=== PATIENT | male | born 1945 | race Caucasian/White ===

== ENCOUNTER 2024-02-02 09:59 | Observation (INO) | payer OTHER, MEDICARE ==
--- NOTE | 2024-02-02 10:22 | ED ---
Skin/Abscess/FB HPI - General Chief complaint: Skin/Abscess/Foreign Body Stated complaint: L Leg Sweeling Time Seen by Provider: 02/02/24 10:15 Source: patient, RN notes reviewed Mode of arrival: wheelchair Limitations: no limitations - History of Present Illness Initial comments: 78-year-old male presents emergency department chief complaint of right lower extremity leg wounds and weeping over the past few weeks. Patient states that he was urged to report to the emergency department for further evaluation and possible IV antibiotics. He denies fevers, chills, nausea, vomiting, weakness. Denies recent antibiotics use. Patient has a history of CHF and chronic LE edema. Patient is from out of town and lives in [place], [place]. He states that he had a 'vein removed' of the RLE in the - Related Data Home Medications Medication Instructions Recorded Confirmed Furosemide [Lasix] 40 mg PO DAILY 02/02/24 02/02/24 HYDROcodone/APAP 5-325MG [[place] 1 tab PO BID PRN 02/02/24 02/02/24 5-325] Ipratropium/Albuter 20-100Mcg 1 puff INHALATION RT-QID PRN 02/02/24 02/02/24 [Combivent Respimat 20-100Mcg Inhaler] Previous Rx's Medication Instructions Recorded Cephalexin [Keflex] 500 mg PO Q8HR 7 Days #21 cap 02/04/24 Dapagliflozin Propanediol [Farxiga] 10 mg PO DAILY 90 Days #90 tab 02/04/24 Famotidine [Pepcid] 20 mg PO DAILY 90 Days #90 tab 02/04/24 Losartan [Cozaar] 12.5 mg PO DAILY 90 Days #90 tab 02/04/24 Spironolactone [Aldactone] 12.5 mg PO DAILY 90 Days #90 tab 02/04/24 Allergies Allergy/AdvReac Type Severity Reaction Status Date / Time ceftriaxone Allergy Anaphylaxis Verified 02/03/24 09:42 Review of Systems ROS Statement: Those systems with pertinent positive or pertinent negative responses have been documented in the HPI. ROS Other: All systems not noted in ROS Statement are negative. Past Medical History Past Medical History: Hypertension History of Any Multi-Drug Resistant Organisms: None Reported Past Surgical History: Cholecystectomy Past Psychological History: PTSD Smoking Status: Never smoker Past Alcohol Use History: Rare Past Drug Use History: None Reported General Exam - General Exam Comments Initial Comments: Visual Physical Exam Vital signs reviewed General: Well-appearing, nontoxic, no acute distress. Head: Normocephalic, atraumatic Eyes: PERRLA, EOMI ENT: Airway patent Chest: Nonlabored breathing Skin: No visual rash, normal skin tone Neuro: Alert and oriented 3 Musculoskeletal: No gross abnormalities Limitations: no limitations General appearance: alert, in no apparent distress Head exam: Present: atraumatic, normocephalic, normal inspection Eye exam: Present: normal appearance, PERRL, EOMI. Absent: scleral icterus, conjunctival injection, periorbital swelling ENT exam: Present: normal exam, mucous membranes moist Neck exam: Present: normal inspection. Absent: tenderness, meningismus, lymphadenopathy Respiratory exam: Present: normal lung sounds bilaterally. Absent: respiratory distress, wheezes, rales, rhonchi, stridor Cardiovascular Exam: Present: regular rate, normal rhythm, normal heart sounds. Absent: systolic murmur, diastolic murmur, rubs, gallop, clicks GI/Abdominal exam: Present: soft, normal bowel sounds. Absent: distended, tenderness, guarding, rebound, rigid Right Lower Leg exam: Present: tenderness (anterior, weeping and scabbing noted), swelling, erythema Ankle exam: Present: tenderness, swelling Foot/Toe exam: Present: swelling Neurovascular tendon exam: Present: no vascular compromise, pulse deficit (doppler US revealed pulse). Absent: abnormal cap refill Left Lower Leg exam: Present: swelling Ankle exam: Present: swelling Foot/Toe exam: Present: swelling Neurovascular tendon exam: Present: no vascular compromise Back exam: Present: normal inspection Neurological exam: Present: alert, oriented X3, CN II-XII intact Psychiatric exam: Present: normal affect, normal mood Course Vital Signs 02/02/24 02/02/24 02/02/24 10:02 13:00 13:30 Temperature 97.9 F Pulse Rate 55 L 53 L 56 L Pulse Rate [ Left] Respiratory 16 18 18 Rate Blood Pressure 134/77 140/65 135/63 Blood Pressure [Right Arm] O2 Sat by Pulse 97 100 97 Oximetry 02/02/24 02/02/24 02/02/24 14:00 17:06 17:15 Temperature Pulse Rate 57 L 94 78 Pulse Rate [ Left] Respiratory 18 20 Rate Blood Pressure 135/59 102/49 Blood Pressure [Right Arm] O2 Sat by Pulse 98 Oximetry 02/02/24 02/02/24 02/02/24 17:31 19:03 20:16 Temperature Pulse Rate 78 77 70 Pulse Rate [ Left] Respiratory 22 16 Rate Blood Pressure 110/78 113/65 Blood Pressure [Right Arm] O2 Sat by Pulse 96 94 L Oximetry 02/02/24 02/02/24 02/03/24 20:29 20:44 00:09 Temperature Pulse Rate 71 71 72 Pulse Rate [ Left] Respiratory 19 Rate Blood Pressure 118/57 Blood Pressure [Right Arm] O2 Sat by Pulse 95 Oximetry 02/03/24 02/03/24 02/03/24 00:20 00:54 01:08 Temperature 97.8 F Pulse Rate 65 66 68 Pulse Rate [ Left] Respiratory 18 16 Rate Blood Pressure 110/49 107/50 Blood Pressure [Right Arm] O2 Sat by Pulse 97 95 Oximetry 02/03/24 02/03/24 02/03/24 03:23 03:33 03:48 Temperature Pulse Rate 61 64 65 Pulse Rate [ Left] Respiratory 15 Rate Blood Pressure 99/51 Blood Pressure [Right Arm] O2 Sat by Pulse 95 Oximetry 02/03/24 02/03/24 05:30 07:00 Temperature 97.5 F L 97.5 F L Pulse Rate 63 Pulse Rate [ 64 Left] Respiratory 17 16 Rate Blood Pressure 110/54 Blood Pressure 120/64 [Right Arm] O2 Sat by Pulse 97 98 Oximetry Medical Decision Making - Medical Decision Making Was pt. sent in by a medical professional or institution? @ -No Did you speak to anyone other than the patient for history? @ -[EMS, parent, family, police, friend?] Did you review nursing and triage notes? @ -Yes, and I agree, it is accurate with regards to the patient's symptoms. Were old charts reviewed? @ -No Differential Diagnosis? @ -[chest pain, altered mental status abdominal pain women, abdominal pain men, vaginal bleeding, weakness, fever, dyspnea, syncope, headache, dizziness, GI bleed, back pain, seizure] Cellulitis, congestive heart failure, lower extremity edema, deep vein thrombosis, this list is not all inclusive. EKG interpreted by me (3pts min.)? @ -[none] EKG interpreted by me demonstrating the following: X-rays interpreted by me (1pt min.)? @ -CXR interstitial edema consistent with congestive heart failure ex acerabtion. CT interpreted by me (1pt min.)? @ -[none] U/S interpreted by me (1pt. min.)? @ -US of the right lower extremity no evidence for DVT What testing was considered but not performed? (CT, X-rays, U/S, labs)? Why? @ [CT, X-rays, U/S, labs? Why?] What meds were considered but not given? Why? @ -[none] Did you discuss the management of the patient with other professionals? @ -I spoke with Dr. Longoria, who is the on-call internal medicine provider in regard to The patient's elevated BNP level and concern for cellulitis. Patient be admitted for IV antibiotics and continued diuresis for CHF exacerabtion and cellulits. Did you reconcile home meds? @ -No Was smoking cessation discussed for >3mins.? @ -No Was critical care preformed (if so, how long)? @ -No Were there social determinants of health that impacted care today? How? (Homelessness, low income, unemployed, alcoholism, drug addiction, transportation, low edu. Level, literacy, decrease access to med. care, [facility], rehab)? @ -No Was there de-escalation of care discussed even if they declined? (Discuss DNR or withdrawal of care, Hospice)? @ -No What co-morbidities impacted this encounter? (DM, HTN, Smoking, COPD, CAD, Cancer, CVA, Hep., AIDS, mental health diagnosis, sleep apnea, morbid obesity)? @ -[DM, HTN, Smoking, COPD, CAD, Cancer, CVA, Hep., AIDS, mental health diagnosis, sleep apnea, morbid obesity?] HTN and CHF Was patient admitted / discharged? @ -admitted. 78-year-old male with lower extremity edema and erythema. On examination patient is noted to have Bilateral lower extremity edema that is wo rse on the right side. Right lower extremity reveals erythema and scant pain and performed it is consistent with cellulitis. Patient will be evaluated via laboratory studies and ultrasound to rule out potential blood clot. labs concerning for an elevated BNP of 9950 and cxr concerning for fluid overload. patient will be admitted for IV antiboitics and continued diuresis via lasix. started on 40 IVP lasix Q12H and dose of IV rocephin and ordered oral course of keflex. case discussed with Dr. Heck Undiagnosed new problem with uncertain prognosis? @ -None Drug Therapy requiring intensive monitoring for toxicity (Heparin, Nitro, Insulin, Cardizem)? @ -None Were any procedures done? @ -None Diagnosis/symptom? @ -CHF exacerbation, cellulitis Acute, or Chronic, or Acute on Chronic? @ -acute, acute on chronic Uncomplicated (without systemic symptoms) or Complicated (systemic symptoms)? @ -complicated Side effects of treatment? @ -[none] Exacerbation, Progression, or Severe Exacerbation] @ -Not applicable Poses a threat to life or bodily function? @ -[no] - Lab Data Result diagrams: 02/03/24 06:28 02/03/24 06:28 Lab Results 02/02/24 02/02/24 02/02/24 Range/Units 12:22 12:22 12:22 WBC 5.8 (3.8-10.6) k/uL RBC 3.40 L (4.30-5.90) m/uL Hgb 11.2 L (13.0-17.5) gm/dL Hct 35.0 L (39.0-53.0) % MCV 103.2 H (80.0-100.0) fL MCH 33.0 (25.0-35.0) pg MCHC 32.0 (31.0-37.0) g/dL RDW 15.1 (11.5-15.5) % Plt Count 138 L (150-450) k/uL MPV 8.8 Neutrophils % 74 % Lymphocytes % 9 % Monocytes % 8 % Eosinophils % 7 % Basophils % 0 % Neutrophils # 4.3 (1.3-7.7) k/uL Lymphocytes # 0.5 L (1.0-4.8) k/uL Monocytes # 0.4 (0-1.0) k/uL Eosinophils # 0.4 (0-0.7) k/uL Basophils # 0.0 (0-0.2) k/uL Macrocytosis Moderate PT (10.0-12.5) sec INR (<1.2) APTT (22.0-30.0) sec Sodium 135 L (137-145) mmol/L Potassium 4.6 (3.5-5.1) mmol/L Chloride 101 (98-107) mmol/L Carbon Dioxide 28 (22-30) mmol/L Anion Gap 6 mmol/L BUN 15 (9-20) mg/dL Creatinine 0.71 (0.66-1.25) mg/dL Est GFR (CKD-EPI)AfAm >90 (>60 ml/min/1.73 sqM) Est GFR (CKD-EPI)NonAf 89 (>60 ml/min/1.73 sqM) Glucose 102 H (74-99) mg/dL Lactic Ac Sepsis Rflx Plasma Lactic Acid Mike 2.3 H* (0.7-2.0) mmol/L Calcium 8.8 (8.4-10.2) mg/dL Magnesium (1.6-2.3) mg/dL Total Bilirubin 2.2 H (0.2-1.3) mg/dL AST 43 (17-59) U/L ALT 11 (4-49) U/L Alkaline Phosphatase 81 (38-126) U/L NT-Pro-B Natriuret Pep pg/mL Total Protein 6.6 (6.3-8.2) g/dL Albumin 3.5 (3.5-5.0) g/dL 02/02/24 02/02/24 02/02/24 Range/Units 13:01 13:01 13:09 WBC (3.8-10.6) k/uL RBC (4.30-5.90) m/uL Hgb (13.0-17.5) gm/dL Hct (39.0-53.0) % MCV (80.0-100.0) fL MCH (25.0-35.0) pg MCHC (31.0-37.0) g/dL RDW (11.5-15.5) % Plt Count (150-450) k/uL MPV Neutrophils % % Lymphocytes % % Monocytes % % Eosinophils % % Basophils % % Neutrophils # (1.3-7.7) k/uL Lymphocytes # (1.0-4.8) k/uL Monocytes # (0-1.0) k/uL Eosinophils # (0-0.7) k/uL Basophils # (0-0.2) k/uL Macrocytosis PT 12.3 (10.0-12.5) sec INR 1.2 H (<1.2) APTT 27.6 (22.0-30.0) sec Sodium (137-145) mmol/L Potassium (3.5-5.1) mmol/L Chloride (98-107) mmol/L Carbon Dioxide (22-30) mmol/L Anion Gap mmol/L BUN (9-20) mg/dL Creatinine (0.66-1.25) mg/dL Est GFR (CKD-EPI)AfAm (>60 ml/min/1.73 sqM) Est GFR (CKD-EPI)NonAf (>60 ml/min/1.73 sqM) Glucose (74-99) mg/dL Lactic Ac Sepsis Rflx Y Plasma Lactic Acid Mike (0.7-2.0) mmol/L Calcium (8.4-10.2) mg/dL Magnesium 1.5 L (1.6-2.3) mg/dL Total Bilirubin (0.2-1.3) mg/dL AST (17-59) U/L ALT (4-49) U/L Alkaline Phosphatase (38-126) U/L NT-Pro-B Natriuret Pep 9950 pg/mL Total Protein (6.3-8.2) g/dL Albumin (3.5-5.0) g/dL Disposition Clinical Impression: Cellulitis, Congestive heart failure, Peripheral edema Disposition: ADMITTED IP TO THIS [facility] Condition: Poor Decision to Admit Reason: Admit from EC Decision Date: 02/02/24 Decision Time: 15:37
[2024-02-02 12:40] LABS: Basophils % (A) 0 %; Eosinophils # (A) 0.4 k/uL (0-0.7); Eosinophils % (A) 7 %; HGB 11.2 gm/dL (13.0-17.5); Lymphocytes # (A) 0.5 k/uL (1.0-4.8); Lymphocytes % (A) 9 %; MCV 103.2 fL (80.0-100.0); Macrocytosis Moderate; Mean Platelet Volume 8.8; Monocytes # (A) 0.4 k/uL (0-1.0); Monocytes % (A) 8 %; Neutrophils # (A) 4.3 k/uL (1.3-7.7); Neutrophils % (A) 74 %; Platelet Count 138 k/uL (150-450); RDW 15.1 % (11.5-15.5); WBC 5.8 k/uL (3.8-10.6)
[2024-02-02 12:56] LABS: ALT 11 U/L (4-49); African American GFR (CKD) >90 (>60 ml/min/1.73 sqM); Anion Gap 6 mmol/L; Blood Urea Nitrogen 15 mg/dL (9-20); Calcium 8.8 mg/dL (8.4-10.2); Carbon Dioxide 28 mmol/L (22-30); Chloride 101 mmol/L (98-107); Glucose 102 mg/dL (74-99); Non-African American GFR(CKD) 89 (>60 ml/min/1.73 sqM); Sodium 135 mmol/L (137-145)
[2024-02-02 13:21] LABS: INR 1.2 (<1.2); Partial Thromboplastin Time 27.6 sec (22.0-30.0); Prothrombin Time 12.3 sec (10.0-12.5)
[2024-02-02] MEDS: SODIUM CHLORIDE 0.9% 1,000 ML IV STA (13:38)
[2024-02-02 13:52] LABS: Albumin 3.5 g/dL (3.5-5.0); Potassium 4.6 mmol/L (3.5-5.1); Total Protein 6.6 g/dL (6.3-8.2)
[2024-02-02 13:53] LABS: AST 43 U/L (17-59); Alkaline Phosphatase 81 U/L (38-126); Total Bilirubin 2.2 mg/dL (0.2-1.3)
--- NOTE | 2024-02-02 14:05 | US ---
EXAMINATION TYPE: US venous doppler duplex LE RT DATE OF EXAM: 02/02/2024 1:39 PM COMPARISON: NONE CLINICAL INDICATION: Male, 78 years old with history of edema, erythema, weeping; Edema, erythema, we eping. Hx of blood clot in right leg per patient. SIDE PERFORMED: Right TECHNIQUE: The lower extremity deep venous system is examined utilizing real time linear array sonog chapo with graded compression, doppler sonography and color-flow sonography. VESSELS IMAGED: Common Femoral Vein Deep Femoral Vein Greater Saphenous Vein * Femoral Vein Popliteal Vein Small Saphenous Vein * Proximal Calf Veins (* superficial vessels) Right Leg: No evidence of DVT. Limited visibility of prox calf veins. Mild subcutaneous edema at the calf. *A small to moderate-sized Layton's cyst noted measuring 6.8 x 3.4 x 1.5 cm. Incidental finding: Borderline enlarged lymph node in the left groin: 2.5 x 1.5 x 1.1 cm. IMPRESSION: 1. No evidence for DVT within the right lower extremity imaged from the groin to the upper calf with some limitation in visualization of the upper calf veins. 2. Incidental small to moderate-sized Layton's cyst measuring 6.8 x 3.4 cm. 3. Incidental borderline enlarged left inguinal lymph node measuring 2.5 x 1.5 x 1.1 cm. Probably ghislaine ctive/post inflammatory. This can be followed clinically. If any suspicious clinical features develop or if progressive enlargement, tissue sampling can be considered.
[2024-02-02 14:38] LABS: Magnesium 1.5 mg/dL (1.6-2.3)
--- NOTE | 2024-02-02 15:20 | XR ---
EXAMINATION TYPE: XR chest 2V DATE OF EXAM: 02/02/2024 COMPARISON: None INDICATION: CHF TECHNIQUE: Frontal and lateral views of the chest are obtained. FINDINGS: The heart size is enlarged. The pulmonary vasculature is normal. Bibasilar infiltrates are present. Small right pleural effusion is present.. IMPRESSION: 1. Clinical correlation recommended for congestive heart failure. Follow-up is recommended.
[2024-02-02] MEDS ORDERED: NALOXONE 0.4 MG/ML 1 ML VIAL IV PRN (15:37)
[2024-02-02] MEDS: IPRATROPIUM-ALBUTEROL 3 ML NEB INHALATION STA (17:06)
[2024-02-02] MEDS ORDERED: EPINEPHrine - Anaphylaxis Kit (1 mg/mL) IM PRN (17:19)
[2024-02-02] MEDS: methylPREDNISolone SOD SUCCI 125 MG/2 ML VIAL IM ONE (17:20)
[2024-02-02] MEDS: diphenhydrAMINE 50 MG/ML 1 ML VIAL IVP STA (17:26)
[2024-02-02] MEDS: MAGNESIUM SULFATE-D5W PMX 1 GM in DEXTROSE/WATER 1 100ML.BAG IVPB SCH (18:53)
[2024-02-02] MEDS: FUROSEMIDE 10 MG/ML 4 ML VIAL IV STA (18:53)
[2024-02-02] MEDS: IPRATROPIUM-ALBUTEROL 3 ML NEB INHALATION SCH (20:16)
[2024-02-02] MEDS: BUDESONIDE 0.5 MG/2 ML NEBU INHALATION SCH (20:16)
[2024-02-02] MEDS: HYDROmorphone 1 MG/ML 1 ML SYRINGE IVP PRN (20:33)
[2024-02-02] MEDS: FUROSEMIDE 10 MG/ML 4 ML VIAL IV SCH (23:09)
--- NOTE | 2024-02-02 23:22 | CT ---
EXAMINATION TYPE: CT angio chest DATE OF EXAM: 02/02/2024 COMPARISON: NONE HISTORY: high d-dimer CT DLP: 503.5 mGycm. Automated Exposure Control for Dose Reduction was Utilized. CONTRAST: CTA scan of the thorax is performed with IV Contrast, patient injected with 100 ml mL of Isovue 370, pulmonary embolism protocol. MIP Images are created on CT scanner and reviewed. FINDINGS: LUNGS: There are small bilateral pleural effusions with associated compressive atelectasis in the low er lungs. No pneumothorax seen bilaterally. MEDIASTINUM: Slightly suboptimal study without CT evidence for acute pulmonary embolism. Cardiomegaly is present. No pericardial effusion is seen. Coronary artery calcification is noted. OTHER: Mild to moderate diffuse subcutaneous edema is seen. Some ascites in the abdomen is noted. Cho lecystectomy clips are seen. Multilevel spurring in the thoracic spine IMPRESSION: 1. No CT evidence for acute pulmonary embolism. 2. Cardiomegaly with small to tiny pleural effusions and mild to moderate diffuse subcutaneous edema consistent with CHF exacerbation/fluid overload state is noted.
[2024-02-02] MEDS: methylPREDNISolone SOD SUCCI 40 MG/ML 1 ML VIAL IV SCH (23:27)
--- NOTE | 2024-02-02 23:52 | US ---
EXAMINATION TYPE: US venous doppler duplex LE LT DATE OF EXAM: 02/02/2024 11:44 PM COMPARISON: NONE CLINICAL INDICATION: Male, 78 years old with history of dvt; HX dvt in right leg. SIDE PERFORMED: Left TECHNIQUE: The lower extremity deep venous system is examined utilizing real time linear array sonog chapo with graded compression, doppler sonography and color-flow sonography. VESSELS IMAGED: Common Femoral Vein Deep Femoral Vein Greater Saphenous Vein * Femoral Vein Popliteal Vein Small Saphenous Vein * Proximal Calf Veins (* superficial vessels) limited due to body habitus and slight swelling Left Leg: Negative for DVT as best seen today. There is a 2.1 x 1.0 x 1.2cm prominent but benign-ruth earing lymph node seen in the left groin with a 3mm cortex. Grayscale, color doppler, spectral doppler imaging performed of the deep veins of the left lower extr emity. There is normal flow, compressibility, vascular waveforms. IMPRESSION: Suboptimal study without convincing evidence for acute DVT in the left lower extremity. Subcutaneous edema distally is noted.
[2024-02-03] MEDS: diphenhydrAMINE 50 MG CAP PO SCH (05:38)
--- NOTE | 2024-02-03 05:40 | P.CNPUL ---
History of Present Illness Consult date: 02/03/24 Requesting physician: Venancio Longoria Reason for consult: other (Allergic reaction) Chief complaint: Acute shortness of breath, rash, itching History of present illness: Patient is a 78-year-old white male with past medical history significant for prostate cancer with previous radiation treatments, former tobacco smoker, heart failure. He is from the [facility] and is visiting in [facility]. Over the last month, he has noticed increased lower extremity swelling, he is developed redness and weeping wounds of his right lower extremity. Leg is tender with manipulation. Denies fevers/chills. Denies history of DVTs. He does take Lasix 40 mg daily and Aldactone on an outpatient basis. Denies missing any doses. Venous Doppler of the bilateral lower extremities did not show any evidence of D VT. There is a small to moderate-sized Layton's cyst noted. And borderline enlarged lymphadenopathy in the groin. Patient states that he has multiple medication allergies, but is unable to recall any of them. While emergency department, he was given a dose of Rocephin. Approximately 2 to 3 minutes after starting the infusion. Patient developed altered mental status, pruritic/erythemic rash over the extremity with the infusion, and was noted to be in respiratory distress. Unclear if he was actually given a dose of IM epinephrine. Did receive Benadryl. On my evaluation, he is sitting up in bed on room air, no acute distress. SpO2 95%. He is very talkative. No sign of airway compromise. No stridor or wheezing. No rash. Hemodynamics appear stable. No tachycardia or hypotension or sign of hemodynamic collapse. Patient did have an elevated D-dimer. Chest CTA was done in the emergency department, did not show any evidence of pulmonary embolism. There was cardiomegaly with small to tiny bilateral pleural effusions and mild to moderate diffuse subcutaneous edema consistent with CHF exacerbation and fluid overload state. NT proBNP was elevated at 9950. CBC: WBC count 5.8, hemoglobin 11.2, hematocrit 35, platelets 138. CMP: Sodium 135, potassium 4.6, chloride 101, serum bicarb 28, BUN 15, creatinine 0.71, glucose 102. Lactic acid 2.3 then down to 1.2. LFTs nonelevated. Total bilirubin 2.2. Hemodynamics are stable. Review of Systems REVIEW OF SYSTEMS: CONSTITUTIONAL: Reports weight gain, unable to quantify EYES: Denies change in vision. EARS, NOSE, MOUTH, THROAT: Denies headaches, denies sore throat. CARDIOVASCULAR: Denies chest pain, palpitations or syncopal episodes. Does endorse increased lower extremity swelling RESPIRATORY: Denies shortness of breath, cough, congestion or hemoptysis. GASTROINTESTINAL: Denies change in appetite, abdominal pain, nausea and vomiting, or diarrhea GENITOURINARY: Denies hematuria, denies infections. MUSKULOSKELETAL: Denies pain, denies swelling. INTEGUMENTARY: Denies rash, denies eczema. NEUROLOGICAL: Denies recent memory loss, no recent seizure activity. PSYCHIATRIC: Denies anxiety, denies depression. HEMATOLOGIC/LYMPHATIC: Denies anemia, denies enlarged lymph node Past Medical History Past Medical History: Hypertension History of Any Multi-Drug Resistant Organisms: None Reported Past Surgical History: Cholecystectomy Past Psychological History: PTSD Smoking Status: Never smoker Past Alcohol Use History: Rare Past Drug Use History: None Reported Medications and Allergies Home Medications Medication Instructions Recorded Confirmed Type Furosemide [Lasix] 40 mg PO DAILY 02/02/24 02/02/24 History HYDROcodone/APAP 5-325MG [[place] 1 tab PO BID PRN 02/02/24 02/02/24 History 5-325] Ipratropium/Albuter 20-100Mcg 1 puff INHALATION RT-QID PRN 02/02/24 02/02/24 History [Combivent Respimat 20-100Mcg Inhaler] Spironolactone 50 mg PO DAILY 02/02/24 02/02/24 History Allergies Allergy/AdvReac Type Severity Reaction Status Date / Time ceftriaxone Allergy Anaphylaxis Verified 02/02/24 18:35 Physical Exam Vitals: Vital Signs Temp Pulse Resp BP Pulse Ox 02/03/24 03:48 65 15 99/51 95 02/03/24 03:33 64 02/03/24 03:23 61 02/03/24 01:08 97.8 F 68 16 107/50 95 02/03/24 00:54 66 18 110/49 97 02/03/24 00:20 65 02/03/24 00:09 72 02/02/24 20:44 71 19 118/57 95 02/02/24 20:29 71 02/02/24 20:16 70 02/02/24 19:03 77 16 113/65 94 L 02/02/24 17:31 78 22 110/78 96 02/02/24 17:15 78 02/02/24 17:06 94 20 102/49 98 02/02/24 14:00 57 L 18 135/59 02/02/24 13:30 56 L 18 135/63 97 02/02/24 13:00 53 L 18 140/65 100 02/02/24 10:02 97.9 F 55 L 16 134/77 97 Intake and Output 02/02/24 02/02/24 02/03/24 14:59 22:59 06:59 Other: Weight 63.503 kg GENERAL EXAM: Alert, 78-year-old white male, disheveled, lying flat in bed, Comfortable in no apparent distress. Currently eating a bag of chips HEAD: Normocephalic and atraumatic EYES: Normal reaction of pupils, equal size. NOSE: Clear with pink turbinates. THROAT: No erythema or exudates. NECK: No masses, no JVD. No stridor. CHEST: No chest wall deformity. LUNGS: Equal air entry with bibasilar inspiratory crackles. No stridor, wheezing, rhonchi, focal dullness. On room air. No conversational dyspnea or accessory muscle use while at rest CVS: S1 and S2 normal with no audible murmur, regular rhythm. No extra heart sounds ABDOMEN: No hepatosplenomegaly, active bowel sounds, no guarding or rigidity. SPINE: No scoliosis or deformity SKIN: No rashes. Right lower extremity erythema and weeping edema CENTRAL NERVOUS SYSTEM: No focal deficits, tone is normal in all 4 extremities. EXTREMITIES: There is bilateral lower extremity edema, greater on the right. No clubbing, or cyanosis. Peripheral pulses are intact. Results - Laboratory Findings CBC and BMP: 02/02/24 12:22 02/02/24 12:22 PT/INR, D-dimer PT 12.3 sec (10.0-12.5) 02/02/24 13:01 INR 1.2 (<1.2) H 02/02/24 13:01 D-Dimer 2.31 mg/L FEU (<0.60) H 02/02/24 16:59 Abnormal lab findings: Abnormal Labs 02/02/24 02/02/24 02/02/24 12:22 12:22 12:22 RBC 3.40 L Hgb 11.2 L Hct 35.0 L MCV 103.2 H Plt Count 138 L Lymphocytes # 0.5 L INR D-Dimer Sodium 135 L Glucose 102 H Plasma Lactic Acid Mike 2.3 H* Magnesium Total Bilirubin 2.2 H 02/02/24 02/02/24 02/02/24 13:01 13:01 16:59 RBC Hgb Hct MCV Plt Count Lymphocytes # INR 1.2 H D-Dimer 2.31 H Sodium Glucose Plasma Lactic Acid Mike Magnesium 1.5 L Total Bilirubin - Diagnostic Findings Chest x-ray: image reviewed CT scan - chest: image reviewed Assessment and Plan Assessment: Observed allergic reaction/anaphylaxis, reportedly immediately after starting Rocephin infusion. Unclear if he was actually given a dose of IM epinephrine. He did receive a dose of Benadryl. No signs of airway or hemodynamic compromise. Suspect exacerbation of congestive heart failure, unknown type Acute dyspnea, secondary to above Elevated D-dimer, CT angiogram did not demonstrate any acute pulmonary emboli. Follow-up venous Doppler was not able to identify any DVTs bilaterally Right lower extremity cellulitis Plan: Patient's medications, labs, imaging reviewed Continue to monitor for signs of anaphylaxis Currently no signs of hemodynamic compromise or airway compromise. On room air. No stridor/wheezing/hypoxemia. Blood pressure is stable. No tachycardia. Continue with Benadryl, steroids, Pepcid for the next 24 hours. As needed IM epinephrine if needed. As far as, the patient's fluid overload state/suspected CHF exacerbation. Currently receiving Lasix 40 mg twice daily. Echocardiogram pending for the morning. Infectious disease specialist consulted for antibiotic management. No need for admission to the intensive care unit. Will continue to follow I have personally seen and examined the patient, performed the documentation and the assessment and plan as written. Number of minutes spent on the visit:20 Time with Patient: Greater than 30
[2024-02-03] MEDS ORDERED: CEPHALEXIN 500 MG CAP PO SCH (08:00)
[2024-02-03] MEDS ORDERED: ALBUTEROL NEBULIZED 2.5 MG/3 ML INHALATION PRN (08:20)
[2024-02-03] MEDS: FAMOTIDINE 20 MG TAB PO SCH (09:34)
[2024-02-03 10:52] LABS: Basophils # (A) 0.01 X 10*3/uL (0.00-0.10); Basophils % (A) 0.1 %; Eosinophils # (A) 0 X 10*3/uL (0.04-0.35); Eosinophils % (A) 0 %; HCT 31.6 % (39.6-50.0); HGB 10.5 g/dL (13.0-17.0); Lymphocytes # (A) 0.21 X 10*3/uL (0.90-5.00); Lymphocytes % (A) 2.7 %; MCH 32.6 pg (27.0-32.0); MCHC 33.2 g/dL (32.0-37.0); MCV 98.1 FL (80.0-97.0); Mean Platelet Volume 11.1 FL (9.5-12.2); Monocytes # (A) 0.26 X 10*3/uL (0.20-1.00); Monocytes % (A) 3.4 %; NRBC Per 100 WBC 0 X 10*3/uL (0.00-0.01); Neutrophils # (A) 7.17 X 10*3/uL (1.80-7.70); Neutrophils % (A) 93.2 %; Platelet Count 135 X 10*3/uL (140-440); RBC 3.22 X 10*6/uL (4.40-5.60); RDW 15.9 % (11.5-14.5)
[2024-02-03 11:02] LABS: ALT 10 U/L (10-49); AST 21 U/L (14-35); Albumin 3.1 g/dL (3.8-4.9); Albumin/Globulin Ratio 1.41 Ratio (1.60-3.17); Alkaline Phosphatase 82 U/L (41-126); BUN/Creat Ratio 16.11 Ratio (12.00-20.00); Blood Urea Nitrogen 14.5 mg/dL (9.0-27.0); Calcium 8.1 mg/dL (8.7-10.3); Carbon Dioxide 24.1 mmol/L (21.6-31.8); Chloride 97 mmol/L (96-109); Globulin 2.2 g/dL (1.6-3.3); Glucose 200 mg/dL (70-110); Magnesium 1.6 mg/dL (1.5-2.4); Phosphorus 3.4 mg/dL (2.4-5.1); Potassium 4.2 mmol/L (3.5-5.5); Sodium 134 mmol/L (135-145); Total Bilirubin 0.8 mg/dL (0.3-1.2); Total Protein 5.3 g/dL (6.2-8.2)
--- NOTE | 2024-02-03 11:51 | P.CRDCN ---
History of Present Illness History of present illness: HISTORY OF PRESENT ILLNESS: This is a 78-year-old male with a past medical history significant for congestive heart failure, prostate cancer, former nicotine dependence, and pneumonia earlier this year requiring prolonged hospitalization with mechanical ventilation. 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 We have been asked to see the patient in consultation for congestive heart failure. Patient examined at the bedside. Patient states over the past couple weeks his lower extremities have been getting more swollen. He also reports superficial wounds to his right lower extremity with weeping. He states that his right leg feels numb in certain places but states this has been chronic since having vein stripping of his right leg many years ago. The patient currently denies any chest pain or pressure. He denies any shortness of breath. Patient was started on IV Lasix 40 mg every 12 hours. Vital signs are stable. DIAGNOSTICS: - EKG reveals sinus mechanism with no signs of acute ischemia - Chest xray small right pleural effusion. Bibasilar infiltrates. Heart is enl arged. - Chest CTA: negative for PE. Cardiomegaly with small to tiny pleural effusions and mild to moderate diffuse subcutaneous edema. - Laboratory data: WBC 7.7. Hemoglobin 10.5. Platelet count 135. D-dimer 2.31. Sodium 134. Potassium 4.2. Magnesium 1.6. proBNP 9950. - Current home cardiac medications include Lasix 40 mg daily and spironolactone 50 mg daily REVIEW OF SYSTEMS: At the time of my exam: CONSTITUTIONAL: Denies fever or chills. HEENT: Denies blurred vision, vision changes, or eye pain. Denies hemoptysis CARDIOVASCULAR: Denies chest pain. Denies orthopnea. Denies PND. Denies palpitations RESPIRATORY: Denies shortness of breath. GASTROINTESTINAL: Denies abdominal pain. Denies nausea or vomiting. HEMATOLOGIC: Denies bleeding disorders. GENITOURINARY: Denies any blood in urine. SKIN: Reports lower extremity swelling. Reports wounds to lower extremities. PHYSICAL EXAM: VITAL SIGNS: Reviewed. GENERAL: Well-developed in no acute distress. HEENT: Head is normocephalic. Pupils are equal, round. Sclerae anicteric. Mucous membranes of the mouth are moist. Neck supple. No JVD or thyromegaly LUNGS: Respirations even and unlabored. Lungs essentially clear to auscultation bilaterally. HEART: Regular rate and rhythm. S1 and S2 heard. ABDOMEN: Soft. Nondistended. Nontender. EXTREMITIES: Normal range of motion. No clubbing or cyanosis. Peripheral pulses intact. Bilateral lower extremity noted. RLE with erythema and superficial wounds noted. NEUROLOGIC: Awake and alert. Oriented x 3. ASSESSMENT: Acute on chronic heart failure, type unknown, echo pending Right lower extremity cellulitis History of right lower extremity vein stripping, per patient History of right lower extremity DVT in , per patient History of pneumonia requiring mechanical ventilation and prolonged hospitalization, August 2023 PLAN: Obtain 2D echo to assess cardiac structure and function Continue IV Lasix 40 mg every [address] Fields consulted for cellulitis. Antibiotic management per ID. Obtain records from [facility] Further recommendations pending patient course. Nurse practitioner note has been reviewed by physician. Signing provider agrees with the documented findings, assessment, and plan of care documented by ASSISTANT NEWS DIRECTOR as a scribe. Past Medical History Past Medical History: Hypertension History of Any Multi-Drug Resistant Organisms: None Reported Past Surgical History: Cholecystectomy Past Psychological History: PTSD Smoking Status: Never smoker Past Alcohol Use History: Rare Past Drug Use History: None Reported Medications and Allergies Home Medications Medication Instructions Recorded Confirmed Type Furosemide [Lasix] 40 mg PO DAILY 02/02/24 02/02/24 History HYDROcodone/APAP 5-325MG [[place] 1 tab PO BID PRN 02/02/24 02/02/24 History 5-325] Ipratropium/Albuter 20-100Mcg 1 puff INHALATION RT-QID PRN 02/02/24 02/02/24 History [Combivent Respimat 20-100Mcg Inhaler] Spironolactone 50 mg PO DAILY 02/02/24 02/02/24 History Allergies Allergy/AdvReac Type Severity Reaction Status Date / Time ceftriaxone Allergy Anaphylaxis Verified 02/03/24 09:42 Physical Exam Vitals: Vital Signs Temp Pulse Pulse Resp BP BP Pulse Ox 02/03/24 07:00 97.5 F L 64 16 120/64 98 02/03/24 05:30 97.5 F L 63 17 110/54 97 02/03/24 03:48 65 15 99/51 95 02/03/24 03:33 64 02/03/24 03:23 61 02/03/24 01:08 97.8 F 68 16 107/50 95 07/17/24 00:54 66 18 110/49 97 02/03/24 00:20 65 02/03/24 00:09 72 02/02/24 20:44 71 19 118/57 95 02/02/24 20:29 71 02/02/24 20:16 70 02/02/24 19:03 77 16 113/65 94 L 02/02/24 17:31 78 22 110/78 96 02/02/24 17:15 78 02/02/24 17:06 94 20 102/49 98 02/02/24 14:00 57 L 18 135/59 02/02/24 13:30 56 L 18 135/63 97 02/02/24 13:00 53 L 18 140/65 100 02/02/24 10:02 97.9 F 55 L 16 134/77 97 Results 02/03/24 06:28 02/03/24 06:28 Cardiac Enzymes 02/02/24 Range/Units 12:22 AST 43 (17-59) U/L Coagulation 02/02/24 Range/Units 13:01 PT 12.3 (10.0-12.5) sec APTT 27.6 (22.0-30.0) sec CBC 02/02/24 Range/Units 12:22 WBC 5.8 (3.8-10.6) k/uL RBC 3.40 L (4.30-5.90) m/uL Hgb 11.2 L (13.0-17.5) gm/dL Hct 35.0 L (39.0-53.0) % Plt Count 138 L (150-450) k/uL Comprehensive Metabolic Panel 02/02/24 Range/Units 12:22 Sodium 135 L (137-145) mmol/L Potassium 4.6 (3.5-5.1) mmol/L Chloride 101 (98-107) mmol/L Carbon Dioxide 28 (22-30) mmol/L BUN 15 (9-20) mg/dL Creatinine 0.71 (0.66-1.25) mg/dL Glucose 102 H (74-99) mg/dL Calcium 8.8 (8.4-10.2) mg/dL AST 43 (17-59) U/L ALT 11 (4-49) U/L Alkaline Phosphatase 81 (38-126) U/L Total Protein 6.6 (6.3-8.2) g/dL Albumin 3.5 (3.5-5.0) g/dL Current Medications Generic Name Dose Route Start Last Admin Trade Name Terrenceq PRN Reason Stop Dose Admin Albuterol/Ipratropium 3 ml 02/02/24 20:00 02/03/24 03:23 Ipratropium-Albuterol 3 Ml Neb INHALATION 3 ml RT-Q4H ANN Administration Budesonide 0.5 mg 02/02/24 20:00 02/02/24 20:16 Budesonide 0.5 Mg/2 Ml Nebu INHALATION 0.5 mg RT-BID ANN Administration Diphenhydramine HCl 50 mg 02/03/24 05:30 02/03/24 05:38 Diphenhydramine 50 Mg Cap PO 02/03/24 22:01 50 mg QID ANN Administration Epinephrine HCl 0.3 mg 02/02/24 17:19 Epinephrine - Anaphylaxis Kit (1 Mg/Ml) IM ONCE PRN Anaphylaxis Famotidine 20 mg 02/03/24 09:00 Famotidine 20 Mg Tab PO DAILY ANN Furosemide 40 mg 02/02/24 21:00 02/02/24 23:09 Furosemide 10 Mg/Ml 4 Ml Vial IV 40 mg Q12HR ANN Administration Hydromorphone HCl 1 mg 02/02/24 20:25 02/03/24 00:00 Hydromorphone 1 Mg/Ml 1 Ml Syringe IVP 1 mg Q4HR PRN Administration Pain Methylprednisolone Sodium Succinate 40 mg 02/02/24 23:00 02/03/24 05:35 Methylprednisolone Sod Succi 40 Mg/Ml 1 Ml Vial IV 40 mg Q6H ANN Administration Naloxone HCl 0.2 mg 02/02/24 15:37 Naloxone 0.4 Mg/Ml 1 Ml Vial IV Q2M PRN Opioid Reversal 02/02/24 12:22 02/02/24 12:22
[2024-02-03] MEDS ORDERED: CLINDAMYCIN 900 MG in DEXTROSE 5% IN WATER 50 ML IVPB SCH (19:45)
[2024-02-03] MEDS: MELATONIN 5 MG TABLET PO SCH (22:05)
[2024-02-03] MEDS: CLINDAMYCIN 900 MG in DEXTROSE 5% IN WATER 50 ML IVPB SCH (22:05)
--- NOTE | 2024-02-04 00:24 | HP ---
HISTORY AND PHYSICAL HISTORY OF PRESENT ILLNESS: Came to emergency room with left severe leg wound weeping over the past few weeks due to severe cellulitis and swelling. He is admitted to the hospital to get IV antibiotics. He was given Rocephin in the ER, which made him short of breath, so was given Benadryl and steroids. He is breathing better now. Refuses to wear any oxygen. Has a history of CHF, chronic leg edema. He is from [place], [place]. HOME MEDICATIONS: 1. Lasix 40 daily. 2. Mason 5 b.i.d. 3. Some kind of Albuterol updrafts q.i.d. 4. Spironolactone 50 daily. ALLERGIES: Negative. PAST MEDICAL HISTORY: Hypertension. PAST SURGICAL HISTORY: History of cholecystectomy. PHYSICAL EXAMINATION: VITAL SIGNS: Reviewed. Blood pressure 130s to 140s over 60s to 70s, pulse is 53 to 56, and temperature 97.9. GENERAL: He is sleepy, lethargic. CARDIOVASCULAR: S1, S2. LUNGS: Transmitted upper sounds. GI: Soft. HEMATOLOGY: Negative for Homans. PSYCH: Fair mood and affect. NEUROLOGIC: Alert and oriented x3. LABORATORY DATA: Hemoglobin is 11.2, sodium 135, potassium 4.5. Lactic acid 2.3, magnesium 1.5. He has cellulitis, congestive heart failure, hypomagnesemia, dehydration, peripheral edema, COPD. Prognosis guarded. He is diabetic. He has a wound infection in his legs, possibly some CHF due to severe leg swelling. We will do Dopplers due to elevated D-dimer and rule out pulmonary embolism due to high D-dimer. Continue current treatment. Prognosis guarded as he is kind of noncompliant. Seen in the ER on 02/02/2024. MMODL / IJN: [id number] /
--- NOTE | 2024-02-04 07:28 | P.CONS ---
History of Present Illness - Reason for Consult Consult date: 02/03/24 Cellulitis leg Requesting physician: Venancio Longoria - Chief Complaint Right leg swelling x days - History of Present Illness Patient is a 78-year-old male with a past medical history significant for hypertension PTSD prostate cancer and apparently did have a recent admission to the [facility] where the patient resides and did have chest tube placement patient also have a chronic swelling to the right lower extremity which she attributing to the history of DVT now presenting to the ER concerning for increasing swelling and weeping wounds to the right lower extremity that apparently has been getting worse for the last few days patient denies high- grade fever or any chills and no fever has been recorded patient complaining of pain to the right lower extremity to be dull aching to sharp moderate intensity without limitation he did have diffuse swelling some superficial ulceration and weeping edema but no purulent drainage patient denies having headache or URI symptoms no chest pain, no sore shortness of breath no cough or sputum production no nausea or vomiting no abdominal pain no diarrhea patient did have a white count of 5.8 creatinine 0.71 lactic acid was elevated repeat is normal bilirubin was 2.2 her liver enzymes otherwise normal blood cultures obtained which are currently pending patient did have a venous Doppler no evidence of DVT mix subcutaneous edema small to moderate-sized Layton's cyst and enlarged lymph nodes in the left groin also have a CT angiogram of the chest no evidence of PE cardiomegaly with small to 20 effusion moderate diffuse subcutaneous edema consistent with CHF or fluid overload infectious disease was consulted for further management of antibiotic therapy Review of Systems Positive point and negatives has been mentioned in the HPI, complete review of systems was performed and all other systems are negative Past Medical History Past Medical History: Hypertension History of Any Multi-Drug Resistant Organisms: None Reported Past Surgical History: Cholecystectomy Past Psychological History: PTSD Smoking Status: Never smoker Past Alcohol Use History: Rare Past Drug Use History: None Reported Medications and Allergies Home Medications Medication Instructions Recorded Confirmed Type Furosemide [Lasix] 40 mg PO DAILY 02/02/24 02/02/24 History HYDROcodone/APAP 5-325MG [[place] 1 tab PO BID PRN 02/02/24 02/02/24 History 5-325] Ipratropium/Albuter 20-100Mcg 1 puff INHALATION RT-QID PRN 02/02/24 02/02/24 History [Combivent Respimat 20-100Mcg Inhaler] Spironolactone 50 mg PO DAILY 02/02/24 02/02/24 History Allergies Allergy/AdvReac Type Severity Reaction Status Date / Time ceftriaxone Allergy Anaphylaxis Verified 02/03/24 09:42 Physical Exam Vitals: Vital Signs Temp Pulse Resp BP Pulse Ox 02/03/24 05:30 97.5 F L 63 17 110/54 97 02/03/24 03:48 65 15 99/51 95 02/03/24 03:33 64 02/03/24 03:23 61 02/03/24 01:08 97.8 F 68 16 107/50 95 02/03/24 00:54 66 18 110/49 97 02/03/24 00:20 65 02/03/24 00:09 72 02/02/24 20:44 71 19 118/57 95 02/02/24 20:29 71 02/02/24 20:16 70 02/02/24 19:03 77 16 113/65 94 L 02/02/24 17:31 78 22 110/78 96 02/02/24 17:15 78 02/02/24 17:06 94 20 102/49 98 02/02/24 14:00 57 L 18 135/59 02/02/24 13:30 56 L 18 135/63 97 02/02/24 13:00 53 L 18 140/65 100 02/02/24 10:02 97.9 F 55 L 16 134/77 97 GENERAL DESCRIPTION: Elderly male lying in bed, no distress. No tachypnea or accessory muscle of respiration use. HEENT: Shows Pallor , no scleral icterus. Oral mucous membrane is dry. No pharyngeal erythema or thrush NECK: Trachea central, no thyromegaly. LUNGS: Unlabored breathing. Decreased breath sound at the base HEART: S1, S2, regular rate and rhythm. No loud murmur ABDOMEN: Soft, no tenderness , guarding or rigidity, no organomegaly EXTREMITIES: Right leg with diffuse swelling redness and superficial ulceration from ruptured blister slightly warm to touch SKIN: No rash, no masses palpable. NEUROLOGICAL: The patient is awake, alert, oriented x3, mood and affect normal. Results CBC & Chem 7: 02/03/24 06:28 02/03/24 06:28 Labs: Abnormal Lab Results - Last 24 Hours (Table) 02/02/24 02/02/24 02/02/24 Range/Units 12:22 12:22 12:22 RBC 3.40 L (4.30-5.90) m/uL Hgb 11.2 L (13.0-17.5) gm/dL Hct 35.0 L (39.0-53.0) % MCV 103.2 H (80.0-100.0) fL Plt Count 138 L (150-450) k/uL Lymphocytes # 0.5 L (1.0-4.8) k/uL INR (<1.2) D-Dimer (<0.60) mg/L FEU Sodium 135 L (137-145) mmol/L Glucose 102 H (74-99) mg/dL Plasma Lactic Acid Mike 2.3 H* (0.7-2.0) mmol/L Magnesium (1.6-2.3) mg/dL Total Bilirubin 2.2 H (0.2-1.3) mg/dL 02/02/24 02/02/24 02/02/24 Range/Units 13:01 13:01 16:59 RBC (4.30-5.90) m/uL Hgb (13.0-17.5) gm/dL Hct (39.0-53.0) % MCV (80.0-100.0) fL Plt Count (150-450) k/uL Lymphocytes # (1.0-4.8) k/uL INR 1.2 H (<1.2) D-Dimer 2.31 H (<0.60) mg/L FEU Sodium (137-145) mmol/L Glucose (74-99) mg/dL Plasma Lactic Acid Mike (0.7-2.0) mmol/L Magnesium 1.5 L (1.6-2.3) mg/dL Total Bilirubin (0.2-1.3) mg/dL Assessment and Plan (1) Cellulitis of right leg Current Visit: Yes Status: Acute Code(s): L03.115 - CELLULITIS OF RIGHT LOWER LIMB SNOMED Code(s): 14847591218050948 (2) Allergy to cephalosporin Current Visit: Yes Status: Acute Code(s): Z88.1 - ALLERGY STATUS TO OTHER ANTIBIOTIC AGENTS SNOMED Code(s): 824465105 Plan: 1patient presented to hospital with increasing swelling redness to the right lower extremity did have some diffuse redness superficial ulceration concerning for cellulitis likely related to streptococcal infection. 2patient with apparent documented allergy to ceftriaxone that would limit the number of antibiotics safe to use. 3local care to the right lower extremity with a dry process and a dressing followed by Sukhdev wrap from just above the toe to below the knee. 4we will start the patient on clindamycin 900 milligrams every 8 hour. We will follow on clinical condition and cultures to further adjust medication if needed Thank you for this consultation we will follow the patient along with you Dictation was produced using [employer] dictation software. please excuse any grammatical, word or spelling errors. Time with Patient: Greater than 30
[2024-02-04] MEDS: DAPAGLIFLOZIN PROPANEDIOL 10 MG TABLET PO SCH (09:20)
--- NOTE | 2024-02-04 09:56 | CA ---
Transthoracic Echo Report Name: Deon Molina Age: 78 Gender: M : 1945 Exam Date: 02/04/2024 08:40 Exam Location: [facility] Ht (in): 65 Wt (lb): 140 Ordering Physician: Venancio Longoria MD Attending/Referring Phys: Call Center Team Leader Jacklyn Simeon RDCS Procedure CPT: Indications: chf Cardiac Hx: Technical Quality: Fair Contrast 1: Total Dose (mL): Contrast 2: Total Dose (mL): MEASUREMENTS (Male / Female) Normal Values 2D ECHO LV Diastolic Diameter PLAX 5.5 cm 4.2 - 5.9 / 3.9 - 5.3 cm LV Systolic Diameter PLAX 4.3 cm IVS Diastolic Thickness 1.1 cm 0.6 - 1.0 / 0.6 - 0.9 cm LVPW Diastolic Thickness 1.0 cm 0.6 - 1.0 / 0.6 - 0.9 cm LV Relative Wall Thickness 0.4 RV Internal Dim ED PLAX 4.3 cm LVOT Diameter 1.9 cm LV Diastolic Volume MOD BP 105.5 cm??? 67 - 155 / 56 - 104 cm??? LV Systolic Volume MOD BP 59.0 cm??? 22 - 58 / 19 - 49 cm??? LV Ejection Fraction MOD BP 44.0 % >= 55 % LV Cardiac Index MOD BP 1465.1 cm???/min???m??? LV Diastolic Volume MOD 4C 86.3 cm??? LV Systolic Volume MOD 4C 51.9 cm??? LV Ejection Fraction MOD 4C 39.8 % LV Cardiac Index MOD 4C 1083.2 cm???/min???m??? LV Diastolic Length 4C 8.7 cm LV Systolic Length 4C 7.5 cm LV Diastolic Volume MOD 2C 126.1 cm??? LV Systolic Volume MOD 2C 62.1 cm??? LV Ejection Fraction MOD 2C 50.8 % LV Cardiac Index MOD 2C 2018.6 cm???/min???m??? LV Diastolic Length 2C 8.9 cm LV Systolic Length 2C 8.1 cm LA Volume 139.2 cm??? 18 - 58 / 22 - 52 cm??? LA Volume Index 81.3 cm???/m??? 16 - 28 cm???/m??? M-MODE Aortic Root Diameter MM 2.6 cm LA Systolic Diameter MM 6.0 cm LA Ao Ratio MM 2.3 AV Cusp Separation MM 1.2 cm DOPPLER AV Peak Velocity 165.9 cm/s AV Peak Gradient 11.0 mmHg AV Mean Velocity 114.4 cm/s AV Mean Gradient 5.8 mmHg AV Velocity Time Integral 38.3 cm AI Peak Velocity 433.3 cm/s AI Peak Gradient 75.1 mmHg AI Pressure Half Time 489.6 ms LVOT Peak Velocity 83.5 cm/s LVOT Peak Gradient 2.8 mmHg LVOT Velocity Time Integral 21.6 cm LVOT Stroke Volume 63.3 cm??? LVOT Stroke Volume Index 37.3 ml/m??? LVOT Cardiac Index 1997.3 cm???/min???m??? AV Area Cont Eq vti 1.7 cm??? AV Area Cont Eq pk 1.5 cm??? MV Peak Velocity 309.4 cm/s MV Peak Gradient 38.3 mmHg MV Mean Velocity 125.4 cm/s MV Mean Gradient 8.7 mmHg MV Velocity Time Integral 71.6 cm MV Area PHT 2.8 cm??? Mitral E Point Velocity 260.4 cm/s Mitral A Point Velocity 186.0 cm/s Mitral E to A Ratio 1.4 MV Deceleration Time 267.9 ms TR Peak Velocity 312.7 cm/s TR Peak Gradient 39.1 mmHg Right Atrial Pressure 20.0 mmHg Pulmonary Artery Systolic Pressu 59.1 mmHg Right Ventricular Systolic Press 59.1 mmHg FINDINGS Left Ventricle Mildly increased septal wall thickness. Mildly increased left ventricular systolic volume. Moderately decreased left ventricular ejection fraction. Left ventricular ejection fraction is estimated at 40 %. Right Ventricle Right ventricular dilatation. Moderate to severe pulmonary hypertension. Right ventricular systolic pressure estimated at 59 mm hg. Right Atrium Mild right atrial dilatation. Left Atrium Severely increased left atrial volume. Moderately increased left atrial area. Mitral Valve Severe mitral annular calcification. Mitral valve thickened. Moderate mitral stenosis. [id number] mitral regurgitation. Centrally directed mitral regurgitation jet. Aortic Valve Trileaflet aortic valve. No aortic stenosis. Diffuse thickening (sclerosis) of the aortic valve cusps without reduced excursion. Mild aortic regurgitation. Tricuspid Valve Structurally normal tricuspid valve. Severe tricuspid regurgitation. Pulmonic Valve Structurally normal pulmonic valve. Mild pulmonic regurgitation. Pericardium No pericardial effusion. Pleural effusion. Aorta Normal size aortic root and proximal ascending aorta. CONCLUSIONS Left ventricular ejection fraction 40% Mildly increased left ventricular wall thickness RVSP 59 Mild right ventricular dilation Moderately dilated left atrium Severe mitral calcification Mild to moderate mitral stenosis Moderate to severe mitral regurgitation Mild aortic regurgitation Aortic sclerosis without significant aortic stenosis Severe tricuspid regurgitation No pericardial effusion Previewed by: Dr. Chavo Baxter DO (Electronically Signed) Final Date: 04 February 2024 09:55
--- NOTE | 2024-02-04 11:40 | P.PN ---
Subjective Progress Note Date: 02/04/24 Patient is a 78-year-old white male with past medical history significant for prostate cancer with previous radiation treatments, former tobacco smoker, heart failure. He is from the [facility] and is visiting in town. Over the last month, he has noticed increased lower extremity swelling, he is developed redness and weeping wounds of his right lower extremity. Leg is tender with manipulation. Denies fevers/chills. Denies history of DVTs. He does take Lasix 40 mg daily and Aldactone on an outpatient basis. Denies missing any doses. Venous Doppler of the bilateral lower extremities did not show any evidence of DVT. There is a small to moderate-sized Layton's cyst noted. And borderline enl arged lymphadenopathy in the groin. Patient states that he has multiple medication allergies, but is unable to recall any of them. While emergency department, he was given a dose of Rocephin. Approximately 2 to 3 minutes after starting the infusion. Patient developed altered mental status, pruri tic/erythemic rash over the extremity with the infusion, and was noted to be in respiratory distress. Unclear if he was actually given a dose of IM epinephrine. Did receive Benadryl. On my evaluation, he is sitting up in bed on room air, no acute distress. SpO2 95%. He is very talkative. No sign of airway compromise. No stridor or wheezing. No rash. Hemodynamics appear stable. No tachycardia or hypotension or sign of hemodynamic collapse. Patient did have an elevated D- dimer. Chest CTA was done in the emergency department, did not show any evidence of pulmonary embolism. There was cardiomegaly with small to tiny bilateral pleural effusions and mild to moderate diffuse subcutaneous edema consistent with CHF exacerbation and fluid overload state. NT proBNP was elevated at 9950. CBC: WBC count 5.8, hemoglobin 11.2, hematocrit 35, platelets 138. CMP: Sodium 135, potassium 4.6, chloride 101, serum bicarb 28, BUN 15, creatinine 0.71, glucose 102. Lactic acid 2.3 then down to 1.2. LFTs nonelevated. Total bilirubin 2.2. Hemodynamics are stable. The patient is seen today February 04, 2024 in follow-up on the regular medical floor. He is currently resting comfortably in bed. Awake and alert in no acute distress. He is maintaining good O2 saturations in the 90s on room air. No IV fluids. No complaints of shortness of breath, cough or congestion. Echocardiogram revealed mildly impaired left ventricular systolic function with ejection fraction of 40%. Blood cultures revealing no growth. White count 7.7. Hemoglobin 10.5. Platelets 135. Sodium 134. Potassium 4.2. Bicarb 24. BUN 15. Creatinine 0.9. Glucose 200. He remains on clindamycin. Remains on IV diuretics. Objective - Vital Signs Vital signs: Vital Signs Temp 97.4 F L 02/04/24 07:00 Pulse 54 L 02/04/24 07:00 Resp 16 02/04/24 09:20 BP 101/58 02/04/24 07:00 Pulse Ox 97 02/04/24 07:00 FiO2 Intake & Output 02/03/24 02/04/24 02/04/24 18:59 06:59 18:59 Intake Total 118 Output Total 400 Balance 118 -400 Weight 63.503 kg 59.5 kg Intake: Oral 118 Output: Urine 400 Other: Voiding Method Toilet Urinal Urinal # Voids 3 1 # Bowel Movements 1 1 - Exam GENERAL EXAM: Alert, 78-year-old male, lying flat in bed, on room air. In no apparent distress. HEAD: Normocephalic and atraumatic EYES: Normal reaction of pupils, equal size. NOSE: Clear with pink turbinates. THROAT: No erythema or exudates. NECK: No masses, no JVD. No stridor. CHEST: No chest wall deformity. LUNGS: Equal air entry with bibasilar inspiratory crackles. No stridor, wheezing, rhonchi, focal dullness. CVS: S1 and S2 normal with no audible murmur, regular rhythm. No extra heart sounds ABDOMEN: No hepatosplenomegaly, active bowel sounds, no guarding or rigidity. SPINE: No scoliosis or deformity SKIN: No rashes. Right lower extremity erythema and weeping edema CENTRAL NERVOUS SYSTEM: No focal deficits, tone is normal in all 4 extremities. EXTREMITIES: There is bilateral lower extremity edema, greater on the right. No clubbing, or cyanosis. Peripheral pulses are intact. - Labs CBC & Chem 7: 02/03/24 06:28 02/03/24 06:28 Labs: Microbiology - Last 24 Hours (Table) 02/02/24 13:35 Blood Culture - Preliminary Blood 02/02/24 13:30 Blood Culture - Preliminary Blood Assessment and Plan Assessment: Observed allergic reaction/anaphylaxis, reportedly immediately after starting Rocephin infusion. Unclear if he was actually given a dose of IM epinephrine. He did receive a dose of Benadryl. No signs of airway or hemodynamic compromise. Acute exacerbation of systolic congestive heart failure Acute dyspnea, secondary to above Elevated D-dimer, CT angiogram did not demonstrate any acute pulmonary emboli. Follow-up venous Doppler was not able to identify any DVTs bilaterally Right lower extremity cellulitis Plan: The patient was seen and evaluated Labs and medications reviewed Echocardiogram reviewed Stable and on room air Remains on IV diuretics Remains on clindamycin This patient was seen independently by the pulmonary nurse practitioner addressing pulmonary issues I have personally seen and examined the patient, performed the documentation and the assessment and plan as written. Number of minutes spent on the visit: 25.
--- NOTE | 2024-02-04 11:43 | P.PN ---
Subjective HISTORY OF PRESENT ILLNESS: This is a 78-year-old male with a past medical history significant for congestive heart failure, prostate cancer, former nicotine dependence, and pneumonia earlier this year requiring prolonged hospitalization with mechanical ventilation. 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 We have been asked to see the patient in consultation for congestive heart failure. Patient examined at the bedside. Patient states over the past couple weeks his lower extremities have been getting more swollen. He also reports superficial wounds to his right lower extremity with weeping. He states that his right leg feels numb in certain places but states this has been chronic since having vein stripping of his right leg many years ago. The patient currently denies any chest pain or pressure. He denies any shortness of breath. Patient was started on IV Lasix 40 mg every 12 hours. Vital signs are stable. DIAGNOSTICS: - EKG reveals sinus mechanism with no signs of acute ischemia - Chest xray small right pleural effusion. Bibasilar infiltrates. Heart is enlarged. - Chest CTA: negative for PE. Cardiomegaly with small to tiny pleural effusions and mild to moderate diffuse subcutaneous edema. - Laboratory data: WBC 7.7. Hemoglobin 10.5. Platelet count 135. D-dimer 2.31. Sodium 134. Potassium 4.2. Magnesium 1.6. proBNP 9950. - Current home cardiac medications include Lasix 40 mg daily and spironolactone 50 mg daily 02/03 patient seen and examined. Patient's has been diuresed and feeling much better. He did have his ankles wraps. Denies any chest pain or pressure. True is obtained from [facility] and there is documentation of atrial fibrillation however has not been taking anticoagulation as it has been too expensive in the past. Additionally he does have a history of heart failure in the past with echo around 50% and severely elevated RVSP of 85 with patient started on a number of heart failure regimen however he could not afford this and he would not pay for this and therefore his been off of most of his medications. PHYSICAL EXAM: VITAL SIGNS: Reviewed. GENERAL: Well-developed in no acute distress. HEENT: Head is normocephalic. Pupils are equal, round. Sclerae anicteric. Mucous membranes of the mouth are moist. Neck supple. No JVD or thyromegaly LUNGS: Respirations even and unlabored. Lungs essentially clear to auscultation bilaterally. HEART: Regular rate and rhythm. S1 and S2 heard. ABDOMEN: Soft. Nondistended. Nontender. EXTREMITIES: Normal range of motion. No clubbing or cyanosis. Peripheral pulses intact. Bilateral lower extremity noted. RLE with erythema and superficial wounds noted. NEUROLOGIC: Awake and alert. Oriented x 3. ASSESSMENT: Acute on chronic heart failure, type unknown, echo pending Right lower extremity cellulitis History of right lower extremity vein stripping, per patient History of right lower extremity DVT in , per patient History of pneumonia requiring mechanical ventilation and prolonged hospitalization, August 2023 PLAN: patient stated he wants to leave with outpatient follow-up. Echocardiogram showing EF 40% with prior echo from [facility] EF 50% with severe pulmonary hypertension. Much this appears left-sided heart failure and optimize heart failure regimen. He has been unable to afford many of these medications the past. Additional documentation of paroxysmal atrial fibrillation however currently sinus rhythm. Ideally anticoagulation. If patient goes home would recommend Lasix 80 mg twice a day and we will add low-dose losartan for heart failure regimen. Objective - Vital Signs Vital signs: Vital Signs Temp 97.4 F L 02/04/24 07:00 Pulse 54 L 02/04/24 07:00 Resp 16 02/04/24 09:20 BP 101/58 02/04/24 07:00 Pulse Ox 97 02/04/24 07:00 FiO2 Intake & Output 02/03/24 02/04/24 02/04/24 18:59 06:59 18:59 Intake Total 118 Output Total 400 Balance 118 -400 Weight 63.503 kg 59.5 kg Intake: Oral 118 Output: Urine 400 Other: Voiding Method Toilet Urinal Urinal # Voids 3 1 # Bowel Movements 1 1 - Labs CBC & Chem 7: 02/03/24 06:28 02/03/24 06:28 Labs: Microbiology - Last 24 Hours (Table) 02/02/24 13:35 Blood Culture - Preliminary Blood 02/02/24 13:30 Blood Culture - Preliminary Blood
--- NOTE | 2024-02-04 12:57 | P.PN ---
Subjective Progress Note Date: 02/04/24 Principal diagnosis: Reason for follow-up is right lower extremity cellulitis Patient is a 78-year-old male with a past medical history significant for hypertension PTSD prostate cancer presented to the hospital for evaluation increasing swelling weeping edema to the right leg and shortness of breath. Patient did have lower extreme Doppler was negative for DVT On today's evaluation that is 02/04/2024, Patient is afebrile patient is currently on room air and denies having any shortness of breath, the patient denies any chest pain or cough, the patient denies any nausea vomiting did not have any abdominal pain and no diarrhea patient did mention overall swelling and pain to the right knee has decreased in intensity. Patient white count 7.70, creatinine 0.9 blood cultures pending Objective - Vital Signs Vital signs: Vital Signs Temp 97.4 F L 02/04/24 07:00 Pulse 54 L 02/04/24 07:00 Resp 16 02/04/24 09:20 BP 101/58 02/04/24 07:00 Pulse Ox 97 02/04/24 07:00 FiO2 Intake & Output 02/03/24 02/04/24 02/04/24 18:59 06:59 18:59 Intake Total 118 Output Total 400 Balance 118 -400 Weight 63.503 kg 59.5 kg Intake: Oral 118 Output: Urine 400 Other: Voiding Method Toilet Urinal Urinal # Voids 3 1 # Bowel Movements 1 1 - Exam GENERAL DESCRIPTION: An elderly male lying in bed in no distress RESPIRATORY SYSTEM: Unlabored breathing , decreased breath sounds at bases HEART: S1 S2 regular rate and rhythm , ABDOMEN: Soft , no tenderness EXTREMITIES: Right leg currently wrapped in Sukhdev wrap overall redness slightly decreased - Labs CBC & Chem 7: 02/03/24 06:28 02/03/24 06:28 Labs: Microbiology - Last 24 Hours (Table) 02/02/24 13:35 Blood Culture - Preliminary Blood 02/02/24 13:30 Blood Culture - Preliminary Blood Assessment and Plan (1) Cellulitis of right leg Current Visit: Yes Status: Acute Code(s): L03.115 - CELLULITIS OF RIGHT LOWER LIMB SNOMED Code(s): 87052936783379349 (2) Allergy to cephalosporin Current Visit: Yes Status: Acute Code(s): Z88.1 - ALLERGY STATUS TO OTHER ANTIBIOTIC AGENTS SNOMED Code(s): 635851286 Plan: 1patient presented to hospital with increasing swelling redness to the right lower extremity did have some diffuse redness superficial ulceration concerning for cellulitis likely related to streptococcal infection. 2local care to the right lower extremity with a dry process and a dressing followed by Sukhdev wrap from just above the toe to below the knee. 3patient apparently has some shortness of breath in the ER and has been labeled as possible anaphylaxis to her Rocephin however the patient did not have any other symptoms clinically doubtful allergy as per discussion with pharmacist we are able to use cefazolin even if the patient has allergic reaction to Rocephin 4we will discontinue clindamycin decrease risk of C. difficile colitis start cefazolin and have improvement to finish therapy with oral Keflex Dictation was produced using [employer] dictation software. please excuse any grammatical, word or spelling errors. Time with Patient: Less than 30
[2024-02-04] MEDS: SPIRONOLACTONE 25 MG TAB PO SCH (13:43)
[2024-02-04] MEDS: LOSARTAN 25 MG TAB PO SCH (13:43)
[2024-02-04 14:13] VITALS: BP 125/71; RESP 18; TEMP 97.6
[2024-02-04] MEDS: ALBUTEROL NEBULIZED 2.5 MG/3 ML INHALATION SCH (15:28)
[2024-02-04 15:36] VITALS: PULSE 56
== END 2024-02-04 17:48 | disposition home or self-care (01) ==
LOC: EC 09:59 → 6NMEDSUR 14:52
PROVIDERS: ADMIT Family Medicine; ATTEND Family Medicine
DX: L03.115 Cellulitis of right lower limb (principal); I11.0 Hypertensive heart disease with heart failure; I50.23 Acute on chronic systolic (congestive) heart failure; R79.89 Other specified abnormal findings of blood chemistry; E83.42 Hypomagnesemia; E86.0 Dehydration; J44.9 Chronic obstructive pulmonary disease, unspecified; E11.9 Type 2 diabetes mellitus without complications; Z85.46 Personal history of malignant neoplasm of prostate; Z86.718 Personal history of other venous thrombosis and embolism; Z87.01 Personal history of pneumonia (recurrent); Z87.891 Personal history of nicotine dependence; Z91.199 Patient's noncompliance with other medical treatment and regimen due to unspecified reason; Z79.84 Long term (current) use of oral hypoglycemic drugs; Z79.899 Other long term (current) drug therapy; Z88.1 Allergy status to other antibiotic agents
CPT/HCPCS: 96376 ×3; 96366 ×2; 96367 ×2; 96361; 96365; 96372; 96375; 99285; 36415; 94640 ×5; 93306; 85379; 83880; 80053 ×2; 83605; 83735 ×2; 84100; 85025 ×2; 85610; 85730; 87040; 71046; 93971 ×2; 71275; G0378 ×3; J1200; J1940 ×3; J0690; J1170 ×2; J3475; Q9967; J0736 ×2; J2919 ×3